=== PATIENT | male | born 1980 | race Caucasian/White ===

== ENCOUNTER 2023-02-07 04:59 | Day surgery (SDC) | payer OTHER ==
[2023-02-02 17:26] VITALS: BMI 33.6
[2023-02-07] MEDS ORDERED: ELECTROLYTE-148 SOLN 1,000 ML IV SCH (09:45)
[2023-02-07] MEDS ORDERED: ceFAZolin SODIUM 1 GM VIAL IVPB ONE (10:02)
[2023-02-07 15:37] VITALS: RESP 18
[2023-02-07 15:55] VITALS: TEMP 97.9
[2023-02-07 15:59] VITALS: BP 139/89; PULSE 73
== END 2023-02-07 12:40 | disposition home or self-care (01) ==
LOC: JASU-SURG 04:59
PROVIDERS: ATTEND Urology
PROC: 0TF4XZZ Fragmentation in Left Kidney Pelvis, External Approach (ICD-10-PCS; principal; 2023-02-07 09:45)
DX: N20.0 Calculus of kidney (principal)